=== PATIENT | female | born 1990 | race Two or more races ===

== ENCOUNTER 2020-03-27 19:59 | Emergency (ER) | payer SELFPAY ==
[2020-03-27 20:51] LABS: ABSOLUTE LYMPHOCYTES (AUTO) 2.7 10^3/uL (0.5-4.7); ABSOLUTE MONOCYTES (AUTO) 0.7 10^3/uL (0.1-1.4); BASOPHILS % (AUTO) 0.1 % (0-2); EOSINOPHILS % (AUTO) 0.5 % (0-6); HEMATOCRIT 36.6 % (36.0-47.0); HEMOGLOBIN 12.9 g/dL (12.0-15.5); LYMPHOCYTES % (AUTO) 28.9 % (13-45); MEAN CORPUSCULAR HEMOGLOBIN 31.2 pg (27.0-33.4); MEAN CORPUSCULAR HGB CONC 35.3 g/dL (32.0-36.0); MEAN CORPUSCULAR VOLUME 89 fl (80-97); PLATELET COUNT 191 10^3/uL (150-450); RED BLOOD COUNT 4.13 10^6/uL (3.72-5.28); RED CELL DISTRIBUTION WIDTH 13.8 % (11.5-14.0); SEGMENTED NEUTROPHILS % (AUTO) 63.5 % (42-78); TOTAL CELLS COUNTED % (AUTO) 100 %; WHITE BLOOD COUNT 9.4 10^3/uL (4.0-10.5)
[2020-03-27 20:59] LABS: APPEARANCE,URINE SLIGHTLY-CLOUDY; BILIRUBIN,URINE NEGATIVE (NEGATIVE); COLOR,URINE YELLOW; GLUCOSE, URINE NEGATIVE (NEGATIVE); KETONES,URINE NEGATIVE (NEGATIVE); LEUKOCYTE ESTERASE,URINE TRACE (NEGATIVE); NITRITE,URINE NEGATIVE (NEGATIVE); PROTEIN,URINE NEGATIVE (NEGATIVE); URINE SPECIFIC GRAVITY 1.006; UROBILINOGEN,URINE NEGATIVE mg/dL (<2.0)
[2020-03-27] MEDS ORDERED: ACETAMINOPHEN 325 MG TABLET PO ONE (21:38)
--- NOTE | 2020-03-27 21:40 | ER Document Report ---
ED GI/ - General Chief Complaint: Vaginal Bleeding Stated Complaint: VAGINAL PAIN/BLEEDING 12 WKS PREG Time Seen by Provider: 03/27/20 21:29 [facility] - 03/30/20 Mode of Arrival: Ambulatory Information source: Patient Notes: Patient presents 12 weeks G3, P1 with lower pelvic cramping and vaginal spotting. Patient does report some urinary frequency as well. Patient denies any nausea vomiting or fever. Patient denies any back pain. - HPI Patient complains to provider of: Pelvic pain, , Vaginal bleeding. No: Vaginal discharge, Vomiting Onset: This morning Quality of pain: Cramping Pain Level: 3 Context: Location: Pelvis Vaginal bleeding (Compared to normal period): Spotting Menstrual period history: Associated symptoms: Urinary frequency. denies: Dysuria, Fever, Nausea, Urinary urgency, Vaginal discharge, Vomiting Exacerbated by: Denies Relieved by: Denies - Related Data Allergies/Adverse Reactions: No Known Allergies Allergy (Unverified 03/27/20 20:19) Past Medical History - General Information source: Patient, Friend - Social History Smoking Status: Never Smoker Frequency of alcohol use: None Drug Abuse: None Occupation: none Family History: Reviewed & Not Pertinent Patient has homicidal ideation: No - Medical History Medical History: Negative Surgical Hx: Negative Review of Systems - Review of Systems Constitutional: No symptoms reported. denies: Fever, Recent illness EENT: No symptoms reported Cardiovascular: No symptoms reported. denies: Chest pain, Dizziness Respiratory: No symptoms reported. denies: Cough, Short of breath Gastrointestinal: Abdominal pain. denies: Nausea, Vomiting Genitourinary: Frequency. denies: Dysuria Female Genitourinary: , Vaginal bleeding. denies: Vaginal discharge Musculoskeletal: No symptoms reported. denies: Back pain Skin: No symptoms reported Hematologic/Lymphatic: No symptoms reported Neurological/Psychological: No symptoms reported Physical Exam - Vital signs Vitals: Temp Pulse Resp BP Pulse Ox 98.2 F 82 16 117/67 100 03/27/20 20:07 03/27/20 20:07 03/27/20 20:07 03/27/20 20:07 03/27/20 20:07 - General General appearance: Appears well, Alert In distress: None - HEENT Head: Normocephalic, Atraumatic Eyes: Normal Conjunctiva: Normal Nasal: Normal Mouth/Lips: Normal Mucous membranes: Normal Neck: Normal, Supple. No: Lymphadenopathy - Respiratory Respiratory status: No respiratory distress Chest status: Nontender Breath sounds: Normal. No: Rales, Rhonchi, Stridor, Wheezing Chest palpation: Normal - Cardiovascular Rhythm: Regular Heart sounds: S1 appreciated, S2 appreciated - Abdominal Inspection: Normal Distension: No distension Bowel sounds: Normal Tenderness: Tender - lower pelvic Organomegaly: No organomegaly - Back Back: Normal, Nontender. No: CVA tenderness - Extremities General upper extremity: Normal inspection, Normal strength General lower extremity: Normal inspection, Normal strength - Neurological Neuro grossly intact: Yes Cognition: Normal Martha Coma Scale Eye Opening: Spontaneous Martha Coma Scale Verbal: Oriented Martha Coma Scale Motor: Obeys Commands Martha Coma Scale Total: 15 - Psychological Associated symptoms: Normal affect, Normal mood - Skin Skin Temperature: Warm Skin Moisture: Dry Skin Color: Normal Course - Re-evaluation Re-evalutation: 03/27/20 23:13 Patient with intrauterine gestational sac that measures at 8 weeks 2 days although there is only a questionable pole that measures at 6 weeks. There are no heart tones noted on ultrasound. Will have patient return for repeat quant and advise patient to have a repeat ultrasound early next week. Patient with stable vital signs and H&H. Good return precautions discussed with patient. - Vital Signs Vital signs: Temp Pulse Resp BP Pulse Ox 98.2 F 84 20 120/65 100 03/27/20 23:40 03/27/20 23:40 03/27/20 23:40 03/27/20 23:40 03/27/20 23:40 - Laboratory Result Diagrams: 03/27/20 20:33 Laboratory results interpreted by me: 03/27/20 03/27/20 20:33 20:40 Beta HCG, Quant 92930.00 H Urine Blood LARGE H Ur Leukocyte Esterase TRACE H 03/27/20 23:13 Labs- Entire Visit 03/27/20 03/27/20 03/27/20 20:33 20:33 20:33 WBC 9.4 RBC 4.13 Hgb 12.9 Hct 36.6 MCV 89 MCH 31.2 MCHC 35.3 RDW 13.8 Plt Count 191 Lymph % (Auto) 28.9 [place] % (Auto) 7.0 Eos % (Auto) 0.5 Baso % (Auto) 0.1 Absolute Neuts (auto) 6.0 Absolute Lymphs (auto) 2.7 Absolute Monos (auto) 0.7 Absolute Eos (auto) 0.0 Absolute Basos (auto) 0.0 Seg Neutrophils % 63.5 Beta HCG, Quant 70001.00 H Total Beta HCG POSITIVE Urine Color Urine Appearance Urine pH Ur Specific [place] Urine Protein Urine Glucose (UA) Urine Ketones Urine Blood Urine Nitrite Urine Bilirubin Urine Urobilinogen Ur Leukocyte Esterase Urine WBC (Auto) Urine RBC (Auto) Urine Bacteria (Auto) Squamous Epi Cells Auto Urine Mucus (Auto) Urine Ascorbic Acid Blood Type O POSITIVE Rhogam Indicated RHOGAM NOT INDICATED 03/27/20 20:40 WBC RBC Hgb Hct MCV MCH MCHC RDW Plt Count Lymph % (Auto) [place] % (Auto) Eos % (Auto) Baso % (Auto) Absolute Neuts (auto) Absolute Lymphs (auto) Absolute Monos (auto) Absolute Eos (auto) Absolute Basos (auto) Seg Neutrophils % Beta HCG, Quant Total Beta HCG Urine Color YELLOW Urine Appearance SLIGHTLY-CLOUDY Urine pH 6.0 Ur Specific [place] 1.006 Urine Protein NEGATIVE Urine Glucose (UA) NEGATIVE Urine Ketones NEGATIVE Urine Blood LARGE H Urine Nitrite NEGATIVE Urine Bilirubin NEGATIVE Urine Urobilinogen NEGATIVE Ur Leukocyte Esterase TRACE H Urine WBC (Auto) 11 Urine RBC (Auto) 6 Urine Bacteria (Auto) TRACE Squamous Epi Cells Auto 3 Urine Mucus (Auto) RARE Urine Ascorbic Acid NEGATIVE Blood Type Rhogam Indicated - Diagnostic Test Radiology reviewed: Reports reviewed Discharge - Discharge Clinical Impression: Intrauterine , Vaginal bleeding affecting early UTI (urinary tract infection) Qualifiers: Urinary tract infection type: site unspecified Hematuria presence: with hematuria Qualified Code(s): N39.0 - Urinary tract infection, site not specified Disposition: HOME, SELF-CARE Instructions: Cephalexin ([facility]), Threatened Miscarriage ([facility]), Urinary Tract Infection ([facility]) Additional Instructions: Return immediately for any new or worsening symptoms Followup with your primary care provider, call tomorrow to make a followup appointment Return in 2 days to have a repeat quantitative hCG test. Present to the lab for blood draw You will need a repeat ultrasound next week to further evaluate the . Contact your OB provider on Monday to make a follow-up appointment Prescriptions: Cephalexin Monohydrate [Keflex 500 mg Capsule] 500 mg PO BID 5 Days #10 capsule Forms: Follow-Up Laboratory Testing Referrals: [facility] DEPT,[facility] [NO LOCAL MD] - 03/30/20
--- NOTE | 2020-03-27 23:10 | RADIOLOGY REPORT (SQ) ---
US PELVIS EXAM DATE: 03/27/2020 9:40 PM CDT HISTORY: Vaginal bleeding and cramping. COMPARISON: None. TECHNIQUE: Grayscale, color Doppler, and spectral Doppler ultrasound images of the pelvis were obtained. FINDINGS: The uterus is retroverted and measures 8.3 x 6.1 x 7.5 cm. There is an intrauterine gestational sac containing a yolk sac. The mean sac diameter is 3.12 cm corresponding to 8 weeks 2 days. There is a possible pole with a crown-rump length of 0.4 cm corresponding to 6 weeks 1 day. No heart tones are seen at this time. Left ovary is not visualized. The right ovary is normal in size and contains color Doppler blood flow as well as a small corpus luteum cyst. No free fluid. IMPRESSION: Early intrauterine of 6 weeks 1 day. No heart rate could be elicited at this time which may be due to early . Correlate with clinical history and beta-hCG values and consider short-term follow-up ultrasound imaging.
[2020-03-27] MEDS ORDERED: CEPHALEXIN 500 MG CAPSULE PO ONE (23:20)
[2020-03-27 23:45] VITALS: BP 120/65
== END 2020-03-27 23:40 | disposition home or self-care (01) ==
LOC: ER 19:59
DX: O23.41 Unspecified infection of urinary tract in pregnancy, first trimester (principal); O20.9 Hemorrhage in early pregnancy, unspecified; R10.2 Pelvic and perineal pain; Z3A.12 12 weeks gestation of pregnancy
CPT/HCPCS: 36415; 76817; 81001; 84702; 85025; 86900; 86901; 87086; 99284

== ENCOUNTER → 2020-03-29 | Outpatient (CLI) | payer SELFPAY | LOC: LAB 10:46 | PROVIDERS: ATTEND Nurse Practitioner Family | DX: O46.90 Antepartum hemorrhage, unspecified, unspecified trimester (principal) | CPT/HCPCS: 36415; 84702 ==

== ENCOUNTER 2020-04-06 16:12 | Emergency (ER) | payer SELFPAY ==
--- NOTE | 2020-04-06 16:39 | ER Document Report ---
ED Medical Screen (RME) - General Chief Complaint: Vag Bleeding, +preg <12wks Stated Complaint: VAGINAL BLEEDING/CRAMPING/VOMITING Time Seen by Provider: 04/06/20 16:27 Primary Care Provider: NEY PELAYO NP [Primary Care Provider] - Follow up as needed Mode of Arrival: Wheelchair Information source: Relative Notes: HPI; 29-year-old female states she 7 weeks presents emergency room with family complaining of worsening abdominal pain and bleeding. Patient states she was seen here yesterday as well as last week multiple visits to the health department was told she was having a miscarriage. But states the pain is intolerable today. She is a 4 para 1. PE: Alert and oriented x3, moderate distress, lungs are clear to auscultation without rales, rhonchi, wheezes. Heart: Regular rate rhythm without murmurs, rubs, gallops. Abdomen soft, nondistended, generalized tenderness, positive bowel sounds x4. I have greeted and performed a rapid initial assessment of this patient. A comprehensive ED assessment and evaluation of the patient, analysis of test results and completion of the medical decision making process will be conducted by additional ED providers. I have specifically instructed the patient or family members with the patient to immediately return to any nursing staff should anything change in the patient's condition or with their chief complaint. - Related Data Allergies/Adverse Reactions: No Known Allergies Allergy (Unverified 03/27/20 20:19) Physical Exam - Vital signs Vitals: Temp Pulse Resp BP Pulse Ox 97.6 F 75 20 132/71 H 100 04/06/20 16:18 04/06/20 16:18 04/06/20 16:18 04/06/20 16:18 04/06/20 16:18 Course - Vital Signs Vital signs: Temp Pulse Resp BP Pulse Ox 97.6 F 75 20 132/71 H 100 04/06/20 16:26 04/06/20 16:18 04/06/20 16:18 04/06/20 16:18 04/06/20 16:18 Doctor's Discharge - Discharge Referrals: NEY PELAYO NP [Primary Care Provider] - Follow up as needed
[2020-04-06 16:56] LABS: ABSOLUTE EOSINOPHILS # (AUTO) 0.1 10^3/uL (0.0-0.6); ABSOLUTE LYMPHOCYTES (AUTO) 2.3 10^3/uL (0.5-4.7); ABSOLUTE MONOCYTES (AUTO) 0.8 10^3/uL (0.1-1.4); ABSOLUTE NEUT (AUTO) 7.6 10^3/uL (1.7-8.2); BASOPHILS % (AUTO) 0.1 % (0-2); EOSINOPHILS % (AUTO) 0.7 % (0-6); HEMATOCRIT 35.3 % (36.0-47.0); HEMOGLOBIN 12.4 g/dL (12.0-15.5); LYMPHOCYTES % (AUTO) 21.5 % (13-45); MEAN CORPUSCULAR HEMOGLOBIN 31.1 pg (27.0-33.4); MEAN CORPUSCULAR VOLUME 89 fl (80-97); MONOCYTES % (AUTO) 7.1 % (3-13); PLATELET COUNT 215 10^3/uL (150-450); RED BLOOD COUNT 3.97 10^6/uL (3.72-5.28); RED CELL DISTRIBUTION WIDTH 13.7 % (11.5-14.0); SEGMENTED NEUTROPHILS % (AUTO) 70.6 % (42-78); TOTAL CELLS COUNTED % (AUTO) 100 %; WHITE BLOOD COUNT 10.8 10^3/uL (4.0-10.5)
[2020-04-06] MEDS ORDERED: ONDANSETRON HCL INJ/PF 4 MG/2 ML SDV IV ONE (16:57)
[2020-04-06] MEDS ORDERED: MORPHINE SULFATE 10 MG/ML INJ IV ONE (16:57)
[2020-04-06 17:26] LABS: ALKALINE PHOSPHATASE 71 U/L (38-126); ANION GAP 8 (5-19); ASPARTATE AMINO TRANSFERASE 26 U/L (14-36); BILIRUBIN,TOTAL 0.4 mg/dL (0.2-1.3); BLOOD UREA NITROGEN 13 mg/dL (7-20); CALCIUM 9.2 mg/dL (8.4-10.2); CARBON DIOXIDE 22 mmol/L (22-30); CHLORIDE 106 mmol/L (98-107); GLUCOSE 109 mg/dL (75-110); POTASSIUM 3.8 mmol/L (3.6-5.0); TOTAL PROTEIN 7.1 g/dL (6.3-8.2)
--- NOTE | 2020-04-06 18:38 | RADIOLOGY REPORT (SQ) ---
EXAM DESCRIPTION: U/S OB TRANSVAGINAL W/O DOP IMAGES COMPLETED DATE/TIME: 04/06/2020 6:17 pm REASON FOR STUDY: bleeding COMPARISON: 03/27/2020 TECHNIQUE: Transvaginal static and realtime grayscale images acquired of the pelvis. Additional true cted spectral and color Doppler images recorded. All images stored on PACs. bHCG: Not available. CLINICAL DATES: DAPHNEY: Not given. EGA: 12 weeks 2 days LIMITATIONS: None. FINDINGS: FETUS: pole identified without heart activity. ULTRASOUND EGA: 6 weeks 2 days ULTRASOUND DAPHNEY: 11/28/2020 CRL: 4.9 mm GESTATIONAL SAC: Irregular-shaped gestational sac is identified within the uterus. A pole is noted without evidence of heart activity. SUBCHORIONIC BLEED: No. SIZE OF BLEED: Not applicable. UTERUS: The uterus measures 7.1 x 4.0 x 4.0 cm. No masses. No anomalies. CERVICAL LENGTH: 2.0 cm Closed. RIGHT ADNEXA: Not visualized due to overlying bowel gas. LEFT ADNEXA: Not visualized due to overlying bowel gas. FREE FLUID: None. OTHER: No other significant finding. IMPRESSION: 1. An irregular shaped gestational sac is identified within the uterus. A pole i s present without evidence of heart activity. Considerations for this finding includes d emise. Please see report dated 03/27/2020. 2. EGA: 6 weeks 2 days. Trimester of : First trimester - 0 to 13 weeks. COMMENT: 1. The results of this examination were discussed with emergency department provider on at 18:31 hours. TECHNICAL DOCUMENTATION: JOB ID: [id number] 2010 [employer]- All Rights Reserved rev-04/06 Reading location - IP/workstation name: [email or web address]
[2020-04-06] MEDS ORDERED: MISOPROSTOL 0.2 MG TABLET PO ONE (18:56)
[2020-04-06] MEDS ORDERED: HYDROCODONE/ACETAMINOPHEN 5-325 MG (6 TAB/ER DISP) PO PRN (18:56)
--- NOTE | 2020-04-06 18:57 | ER Document Report ---
ED General - General Chief Complaint: Vag Bleeding, +preg <12wks Stated Complaint: VAGINAL BLEEDING/CRAMPING/VOMITING Time Seen by Provider: 04/06/20 16:27 Primary Care Provider: NEY PELAYO NP [NURSE PRACTITIONER] - Follow up as needed Mode of Arrival: Wheelchair - [facility] Notes: Patient is a 29-year-old female, G4, P1, last menstrual period January 01, who presents to the emergency department for evaluation of increased vaginal bleeding and pain. She states she passed 2 large clots. She was told she had a demise. Her pain increased, so she presents to the emergency department for further evaluation. She has been having vaginal bleeding for nearly 2 weeks. She is O+. She states she has severe cramping pain, intermittent. No fevers or chills. No nausea or vomiting. She is eating and drinking normally. - Related Data Allergies/Adverse Reactions: No Known Allergies Allergy (Unverified 03/27/20 20:19) Past Medical History - General Information source: Patient, Relative - Social History Smoking Status: Never Smoker Family History: Reviewed & Not Pertinent Patient has homicidal ideation: No Review of Systems - Review of Systems Female Genitourinary: See HPI -: Yes All other systems reviewed and negative Physical Exam - Vital signs Vitals: Temp Pulse Resp BP Pulse Ox 97.6 F 75 20 132/71 H 100 04/06/20 16:18 04/06/20 16:18 04/06/20 16:18 04/06/20 16:18 04/06/20 16:18 - Notes Notes: Vital signs reviewed, please refer to chart. Head is normocephalic, atraumatic. Pupils equal round, reactive to light. Neck is supple without meningismus. Heart is regular rate and rhythm. Lungs are clear to auscultation bilaterally. Abdomen is soft, nontender, normoactive bowel sounds throughout. Extremities without cyanosis, clubbing. Posterior calves are nontender. Peripheral pulses are equal. Skin is warm and dry. Patient is awake, alert, neurological exam is nonfocal. Course - Re-evaluation Re-evalutation: 04/06/20 18:52 Patient presents to the emergency department for evaluation. She is indeed having a miscarriage, but it is not yet completed. Her ultrasound is largely unchanged from prior study. The patient has tolerated misoprostol in the past. I spoke with Dr. Sandoval, on-call [facility]. She advised 400 mcg of p.o. Cytotec, with repeat dose in 3 hours if no results. I explained to the patient that she should expect increased bleeding, increased pain. I explained her that she needs to follow-up on or Monday at [facility]. She voiced understanding. I will send the patient home with a small amount of [place]. She is given first dose of Cytotec here. She is to return to the emergency department with worsening or new concerning symptoms of any sort. 04/06/20 18:53 Please note patient is Rh+. She has tolerated misoprostol in the past. Her hemoglobin is stable. And she is only going through 4-6 menstrual pads daily. - Vital Signs Vital signs: Temp Pulse Resp BP Pulse Ox 97.6 F 75 20 132/71 H 100 04/06/20 16:26 04/06/20 16:18 04/06/20 16:18 04/06/20 16:18 04/06/20 16:18 - Laboratory Result Diagrams: 04/06/20 16:44 04/06/20 16:44 Laboratory results interpreted by me: 04/06/20 04/06/20 16:44 16:44 WBC 10.8 H Hct 35.3 L Sodium 135.8 L Creatinine 0.50 L Beta HCG, Quant 99306.00 H Discharge - Discharge Clinical Impression: Incomplete Condition: Stable Disposition: HOME, SELF-CARE Instructions: Miscarriage Impending ([facility]) Additional Instructions: You have been given Cytotec, this is to help induce passage of the fetus. No heart tones were seen again today. If you have not had increased bleeding, you can repeat this dose in 3 hours. Take ibuprofen, or [place] for severe pain. [facility] on or for further evaluation. If you start bleeding more than 2 pads an hour, develop fevers, vomiting, or any other new or concerning symptoms, please return immediately to the emergency department for reevaluation. Referrals: NEY PELAYO NP [NURSE PRACTITIONER] - Follow up as needed BLAIRE SANDOVAL MD [ACTIVE PROVISIONAL STAFF] - Follow up as needed
[2020-04-06 19:27] VITALS: BP 119/70
== END 2020-04-06 19:27 | disposition home or self-care (01) ==
LOC: ER 16:12
DX: O03.4 Incomplete spontaneous abortion without complication (principal)
CPT/HCPCS: 99284; 96374; 96375; 36415; 84702; 85025; 80053; 76817; J2270; J2405